=== PATIENT | male | born 1980 | race Caucasian/White ===

== ENCOUNTER 2021-09-29 18:48 | Emergency (ER) | payer OTHER, SELFPAY ==
--- NOTE | 2021-09-29 18:58 | ED.EYEPROB ---
HPI - Eye Problem General Chief complaint: Eye Problems Stated complaint: lt eye irritation Time Seen by Provider: 09/29/21 18:58 Source: patient Mode of arrival: ambulatory Limitations: no limitations History of Present Illness HPI Narrative: 41-year-old male presents with irritation, clear drainage, redness to left eye since about noon today. 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 Unsure what may have flown into his eye. States that he did reach up and start rubbing his eye. 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 Patient reports that he is supposed to wear glasses but normally does not use them. All systems reviewed and negative except as noted above. Related Data Allergies Allergy/AdvReac Type Severity Reaction Status Date / Time No Known Allergies Allergy Mild Verified 09/29/21 19:05 Review of Systems Review of Systems: CONSTITUTIONAL: Denies fever, chills, or sweats. EYES: Denies visual changes. Reports redness, discharge, irritation to left eye.. ENT: Denies rhinorrhea, congestion, sore throat, or otalgia. CARDIOVASCULAR: Denies chest pain, palpitations, or edema. RESPIRATORY: Denies cough or dyspnea. GASTROINTESTINAL: Denies abdominal pain, nausea, vomiting, or diarrhea. GENITOURINARY: Denies dysuria or hematuria. SKIN: Denies rash or itching. MUSCULOSKELETAL: Denies back pain, joint pain, or myalgia. NEUROLOGIC: Denies headache, numbness, or weakness. PSYCHIATRIC: Denies anxiety or depression. All other systems reviewed are negative, except as documented in HPI. PMFSH Comments At time of signature, agree with nursing past medical, surgical, social and family history. There is no relevant family history pertinent to the presenting complaint. Exam Narrative: GENERAL: This is a well-nourished, well-developed patient, in no apparent distress. HEAD: normocephalic, atraumatic. EYES: PERRL. Sclera clear/white. Vision is grossly intact. With fluorescein, a small corneal abrasion noted to left eye under Hilliard lamp. There is no exudate or significant drainage. EARS: External ears normal NOSE: External nose normal NECK: Neck supple, non-tender without lymphadenopathy, masses or thyromegaly. CARDIOVASCULAR: Regular rate and rhythm without murmurs, gallops, or rubs. RESPIRATORY: Clear to auscultation. Breath sounds equal bilaterally. No wheezes, rales, or rhonchi. SKIN: warm, Dry, intact with no suspicious lesions or rash, good texture and turgor. NEURO: awake, alert, and oriented to person, place and time. There were no obvious focal neurologic abnormalities. EXTREMITIES: Normal range of motion to extremities. Course Course Level of Care: Express Care Visit Vital Signs Vital signs: Vital Signs Temperature 36.7 C 09/29/21 19:00 Pulse Rate 77 09/29/21 19:00 Respiratory Rate 18 09/29/21 19:00 Blood Pressure 152/85 H 09/29/21 19:00 Pulse Oximetry 98 09/29/21 19:00 Temperature 36.7 C 09/29/21 19:00 Pulse Rate 77 09/29/21 19:00 Respiratory Rate 18 09/29/21 19:00 Blood Pressure 152/85 H 09/29/21 19:00 Pulse Oximetry 98 09/29/21 19:00 Reviewed MDM - Eye Problem MDM Narrative Medical decision making narrative: Patient is aware of diagnosis, understands and agrees to treatment plan. Anticipatory guidance given. Patient agrees to follow-up as directed and is aware of reasons to seek care at the emergency department. Portions of this record may have been created with voice recognition software Differential Diagnosis Differential diagnosis: Likely corneal abrasion, conjunctivitis and corneal ulcer Discharge Plan Discharge Clinical Impression: Abrasion of left cornea Qualifiers: Encounter type: initial encounter Qualified Code(s): S05.02XA - Injury of conjunctiva and corneal abrasion without foreign body, left eye, initial encounter Patient Disposition: Home, Self-Care Condition: Stable Instruction
[2021-09-29 19:00] VITALS: BP 152/85; PULSE 77; RESP 18; TEMP 36.7; O2SAT 98
== END 2021-09-29 19:24 | disposition home or self-care (01) ==
PROVIDERS: Emergency Provider Nurse Practitioner Family; PCP Internal Medicine
DX: S05.02XA Injury of conjunctiva and corneal abrasion without foreign body, left eye, initial encounter (principal); X58.XXXA Exposure to other specified factors, initial encounter
CPT/HCPCS: 99213; A9270; G0463

== ENCOUNTER 2025-06-04 13:58 | Outpatient (CLI) | payer OTHER, SELFPAY ==
--- NOTE | ~2025-06-04 | US_ITS ---
EXAMINATION: US abdomen complete, 06/04/2025 14:00 SOFTWARE QUALITY ASSURANCE ENGINEER HISTORY: R10.9 - Unspecified abdominal pain COMPARISON: None Technique: Macias-scale and color Doppler images were obtained. Findings: LIVER: Lliver contours intact, no lesions. Normal echogenicity. . GALLBLADDER/BILIARY: Unremarkable.No cholelithiais, wall thickening or pericholecystic fluid. No biliary dilatation. CBD 2 mm. Blaine sign negative. PANCREAS: Pancreas limited by bowel gas. SPLEEN: Unremarkable, no splenomegaly. KIDNEYS: Right Kidney: Right kidney, 5.6 x 5.3 cm, normal. Left Kidney: Left kidney 12.8 x 6.2 x 5.3 cm, normal. AORTA: Normal caliber aorta. IVC: Unremarkable. FREE FLUID: None. Impression: No acute abnormality. Reviewed, dictated and finalized at location P. WARE QUALITY ASSURANCE ENGINEER Impression: No acute abnormality.
--- OUTSIDE RECORDS SUMMARY | 2025-06-04 16:47 | XMS_ITS | Clinical Summary ---
Author Organization [facility] Address [address] [place] [address] Care Team Providers Care Application Architect Name Role Phone Smitha Hickman Primary Care Provider [phone] Allergies No known active allergies Medications testosterone cypionate (DEPO TESTOSTERONE) 200 MG/ML injection 07/25/2024 Act trisha Active Problems No known active problems Immunizations Immunization Administration Dates Next Due Dtap (Generic) 03/05/1984, 3,04/02/1982,1981,1981 MMR (Generic) 02/21/1990,10/03/1985 MODERNA COVID-19 (12+) MRNA, LNP-S, PF, 100 MCG/ 0.5 ML DOSE 08/02/2021,07/05/2021 Mumps (Generic) 03/16/1987 Opv 03/05/1984, 2,1981,1981 Social History Tobacco Use Types Packs/Day Years Used Date Smoking Tobacco: Every Day Cigarettes Smokeless Tobacco: Current Tobacco Cessation:Ready to Q uit: Not Asked; Counseling Given: Yes Alcohol Use Standard Drinks/Week Comments Yes 0 (1 standard drink = 0.6 oz pur e alcohol) Sex and Gender Information Value Date Recorded Sex Assigned at Male 08/20/2024 9:25 AM GLOBAL MARKETING COORDINATOR Legal Sex Male 5:54 PM CDT Gender Identity Male 08/20/2024 9:25 AM GLOBAL MARKETING COORDINATOR Sexual Orientation Not on file Last Filed Vital Signs Vital Sign Reading Time Taken Comments Blood Pressure 150/80 08/21/2024 1:10 AM GLOBAL MARKETING COORDINATOR Pulse 82 08/21/2024 1:10 AM GLOBAL MARKETING COORDINATOR Temperature 36.3 C (97.3 F) 08/21/2024 1:10 AM GLOBAL MARKETING COORDINATOR Respiratory Rate 18 08/21/2024 1:10 AM GLOBAL MARKETING COORDINATOR Oxygen Saturation 98% 08/21/2024 1:10 AM GLOBAL MARKETING COORDINATOR Inhaled Oxygen Concentration - - Weight 83.9 kg (185 lb) 08/21/2024 1:10 AM GLOBAL MARKETING COORDINATOR Height 172.7 cm (5' 8) 08/21/2024 1:10 AM GLOBAL MARKETING COORDINATOR Body Mass Index 28.13 08/21/2024 1:10 AM GLOBAL MARKETING COORDINATOR Plan of Treatment Health Maintenance Due Date Last Done Comments Annual Physical 1984 DTaP, Tdap and Td Vaccines (5 - Tdap) 1992 03/05/1984, 03/04/1983, 04/02/1982, Additional history exists Hepatitis C 1999 Hepatitis B Vaccines (1 of 3 - 19+ 3-dose series) 2000 Pneumococcal Vaccine: Pediatrics (0 to 5 Years) and At-Risk Patients (6 to 49 Years) (1 of 2 - PCV) 2000 HPV Vaccines (1 - 3-dose SCDM series) 2008 PHQ-2 (Physician Robertson) 06/25/2024 COVID-19 Vaccine (3 - season) 2025 08/02/2021, 07/05/2021 Influenza Adult (#1) 2025 Hepatitis A Vaccines Aged Out No long er eligible based on patient's age to complete this topic Meningococcal B Vaccine Aged Out No l onger eligible based on patient's age to complete this topic Meningococcal Vaccine Aged Out No eh katelyn eligible based on patient's age to complete this topic RSV Immunizations Under 20 Months Aged Out No longer eligible based on patient's age to complete this topic Insurance [employer] Care Teams Application Architect Relationship Specialty Start Date End Date Smitha Hickman PA PCP - General PHYSICIAN [employer] WORKER 12/20/18
== END 2025-06-04 13:59 | disposition home or self-care (01) ==
PROVIDERS: PCP Nurse Practitioner Family; Visit Provider Nurse Practitioner Family
DX: R79.89 Other specified abnormal findings of blood chemistry (principal); R74.8 Abnormal levels of other serum enzymes; R10.9 Unspecified abdominal pain
CPT/HCPCS: 76700

== ENCOUNTER 2025-06-04 15:47 | Emergency (ER) | payer OTHER, SELFPAY ==
[2025-06-04 15:50] VITALS: BP 151/84; PULSE 103; RESP 18; TEMP 36.9; O2SAT 98
--- OUTSIDE RECORDS SUMMARY | 2025-06-04 17:42 | XMS_ITS | Encounter Summary ---
Author Organization [facility] Address [facility] [place] [address] Care Team Providers Care Microbiology Manager Name Role Phone Smitha Hickman Primary Care Provider [phone] Reason for Referral * Imaging (Emergency) - New Request Specialty Diagnoses / Procedures Referred By Marta hidalgo Referred To Contact RADIOLOGY Procedures CT ABD+PEL W IV CON ONLY Christie Oglesby MD [address] [address] Phone: tel: fax: Referral ID Status Reason Start Date Expiration Date V isits Requested Visits Authorized [id number] New Request 06/04/2025 06/04/[address] Reason for Visit * Reason Comments Abdominal Pain Encounter Details Date Type Department Care Team (Late st Contact Info) Description 06/04/2025 5:[address] HAND - Present Emergency [facility] Emergency Room [address] [place] [id number] Christie Oglesby MD [address] [id number] Abdominal Pain Social History Tobacco Use Types Packs/Day Years Used Date Smoking Tobacco: Every Day Cigarettes Smokeless Tobacco: Current Tobacco Cessation:Ready to Q uit: Not Asked; Counseling Given: Not Answered Alcohol Use Standard Drinks/Week Comments Yes 40 (1 standard drink = 0.6 oz pu re alcohol) Sex and Gender Information Value Date Recorded Sex Assigned at Male 08/20/2024 9:25 [address] HAND Legal Sex Male 5:54 PM CDT Gender Identity Male 08/20/2024 9:[address] HAND Sexual Orientation Not on file documented as of this encounter Last Filed Vital Signs Vital Sign Reading Time Taken Comments Blood Pressure 149/83 06/04/2025 5:52 [address] HAND Pulse 91 06/04/2025 5:52 PM [address] HAND Temperature 37.5 C (99.5 F) 06/04/2025 5:52 PM RA[address] HAND Respiratory Rate 16 06/04/2025 5:52 [address] HAND Oxygen Saturation 96% 06/04/2025 5:52 PM RA[address] HAND Inhaled Oxygen Concentration - - Weight 83.9 kg (185 lb) 06/04/2025 5:52 [address] HAND Height 172.7 cm (5' 8) 06/04/2025 5:52 PM RA[address] HAND Body Mass Index 28.13 06/04/2025 5:52 [address] HAND documented in this encounter Functional Status * Calculated C-SSRS Risk Score (Lifetime/Recent) Answer Date of Assessment Author Status No Risk Indicated 06/04/2025 5:54 [address] HAND Linda Reyes RN Active * [place] Suicide Severity Rating Scale (Screener/Recent Self-Report) Question Answer Date of Assessment Author Status 1. Wish to be (Past 1 Month) No 06/04/2025 5:54 PM RA[address] HAND Dee Dee Reyes RN Acti ve 2. Non-Specific Active Suicidal Thoughts (Past 1 Month) No 06/04/2025 5:54 PM RA[address] HAND Dee Dee Reyes RN Acti ve 6. Suicidal Behavior (Lifetime) No 06/04/2025 5:54 [address] RA[address] HAND Dee Dee Reyes RN Acti ve documented as of this encounter ED Notes * Dee Dee Reyes RN - 06/04/2025 5:49 PM CSTSummary: abd pain Pt states has been sick since Sunday. Unable to eat or drink. Has been going to work. Abed pain, epigastric area started 4 days ago . Went to office yesterday and had lac and us done at [place]. Did not work today. Friends noticed pt very yellow. Nausea, no vomiting. Pain 5/10. ROAD HAND * Christie Oglesby MD - 06/04/2025 5:16 PM CST Chief Complaint No chief complaint on file. History of Present Illness This is a patient who is 44 years old coming with a chief complaint of abdominal discomfort. Statesis been having it for days. States that it started on Sunday went to work on Sunday and Sunday but the pain is just getting worse. Noting he is also having an unusual color. Notes the urine is quite dark. States that he drinks heavily. Drinks at least 2412 ounce beers and numerous shots in a week. If hehas a heavy drinking day it would be 12 beers at night. States he went into see his doctor was toldhe had abnormal labs. He had a ultrasound done but could not identify the pancreas. He has been sent in for CT and worsening abdominal pain Medical History ALLERGIES: No Known Allergies MEDICATIONS: Prior to Admission medications Medication Sig Start Date End Date Taking? Authorizing Provider testosterone cypionate (DEPO TESTOSTERONE) 200 MG/ML injection 07/25/24 Default History Genericprovider PAST MEDICAL HISTORY: Past Medical History[1] PAST SURGICAL HISTORY: Past Surgical History[2] FAMILY HISTORY: Family History[3] SOCIAL HISTORY: Social History[4] Review of Systems Review of Systems Physical Exam There were no vitals filed for this visit. Physical Exam HENT: Head: Normocephalic. Mouth/Throat: Mouth: Mucous membranes are moist. Cardiovascular: Rate and Rhythm: Normal rate. Pulmonary: Effort: Pulmonary effort is normal. Breath sounds: Normal breath sounds. Abdominal: Tenderness: There is generalized abdominal tenderness. Negative signs include Hope's sign. Comments: hepatomegaly Skin: Coloration: Skin is jaundiced. Neurological: General: No focal deficit present. Mental Status: He is alert. Diagnostic Studies / Procedures ELECTROCARDIOGRAMS: No results found for this visit on 06/04/25. LABORATORY STUDIES: No results found for this visit on 06/04/25. IMAGING STUDIES No orders to display ED Course / Medical Decision Making Medical Decision Making Patient is a male coming in with a chief complaint of abdominal pain. Patient arrives he has yellow skin and a tender abdominal exam. Patient initial CBC is unremarkable Patient's CMP is normal with a sodium of 132 chloride 96 bilirubin total is 12.1 direct bilirubin is pending. AST elevated at 149 ALT is 379 alk phos 414 lipase is 112. Urinalysis shows nitrates protein glucose bilirubin and trace blood. I ordered IV fluids for the patient as well as ceftriaxone. Patient's ongoing evaluation and treatment are signed out to the oncoming attending. Amount and/or Complexity of Data Reviewed Labs: ordered. Radiology: ordered. Risk Prescription drug management. Clinical Impression None Disposition: Data Unavailable [1] No past medical history on file. [2] No past surgical history on file. [3] No family history on file. [4] Social History Tobacco Use ??? Smoking status: Every Day Types: Cigarettes ??? Smokeless tobacco: Current Substance Use Topics ??? Alcohol use: Yes ??? Drug use: No Christie Oglesby MD 06/04/[address] HAND documented in this encounter Plan of Treatment Pending Results Name Type Priority Associated Diagnoses Date /Time LACTIC ACID Lab STAT 06/04/2025 6: [address] ABD+PEL W IV CON ONLY CT STAT 06/04/2025 6:54 PM RA[address]RO[address] HAND CK (CPK) Lab STAT 06/04/2025 6:1 0 PM RAILRO[address] HAND PROTIME/INR, VENOUS Lab STAT 06/04 6:10 PM RA[address] HAND ETHANOL Lab STAT 06/04/2025 6:1 0 [address] RA[address] HAND Scheduled Orders Name Type Priority Associated Diagnoses Orde r Schedule LACTIC ACID Lab STAT STAT for 1 Oc currences starting 06/04/2025 until 06/04/2025 CT ABD+PEL W IV CON ONLY CT STAT One time imaging One time imaging for 1 Occurrences starting 06/04/2025 until 06/04/2025 CK (CPK) Lab Routine STAT for 1 Occ urrences starting 06/04/2025 until 06/04/2025 PROTIME/INR, VENOUS Lab Routine STAT for 1 Occurrences starting 06/04/2025 until 06/04/2025 ETHANOL Lab STAT Today for 1 Oc currences starting 06/04/2025 until 06/04/2025 documented as of this encounter Procedures * The patient is currently admitted. The information in this section might not be complete until the patient is discharged. Procedure Name Priority Date/Time Associated Diagnosis Comments URINALYSIS MICRO ONLY STAT 06/04/2025 6:00 [address] HAND URINALYSIS STAT 06/04/2025 6:00 [address] RA[address] HAND LIPASE STAT 06/04/2025 6:00 [address] HAND DIRECT BILIRUBIN STAT 06/04/2025 6:00 [address] HAND COMPREHENSIVE METABOLIC PANEL STAT 06/04/2025 6:00 [address] HAND CBC W/DIFF STAT 06/04/2025 6:00 [address] HAND documented in this encounter Results * URINALYSIS MICRO ONLY (06/04/2025 6:00 PM RA[address]RO[address] HAND) WBC/HPF 0-5 0 - 5 /HPF 06/04/2025 6:27 PM [address] HAND [facility] RBC/HPF 10-25 0 - 5 /HPF 06/04/2025 6:27 PM [address] HAND [facility] EPI/HPF RARE /HPF 06/04/2025 6:27 PM [address] HAND [facility] 06/04/2025 6:00 [address] HAND us Christie Oglesby MD URINE ORDERABLES Final Result Performing Organization Address City/[facility]/ZIP Co de Phone Number [facility] [address] [place] [address], [place] [phone] * (ABNORMAL) DIRECT BILIRUBIN (06/04/2025 6:00 PM RA[address] HAND) BILIRUBIN DIRECT S/P/B 9.8(H) 0.0 - 0.20 MG/DL 06/04/2025 6:49 PM [address] HAND [facility] BLOOD VENOUS BLOOD SPECIMEN / Unknown 06/04/2025 6:00 [address] HAND us Christie Oglesby MD LABORATORY Final Result [facility] [address] [facility] [place] [address], [place] [phone] * (ABNORMAL) URINALYSIS (06/04/2025 6:00 PM RA[address] HAND) COLOR (U) BROWN 06/04/2025 6:27 PM [facility] TRANSPARENCY CLOUDY 06/04/2025 6:27 PM [facility] SPECIFIC GRAVITY (U) >1.030(H) 1.000 - 1.030 06/04/2025 6:27 PM [facility] U PH 5.5 5.0 - 9.0 06/04/2025 6:27 PM [facility] LEUKOCYTES (U) NEGATIVE NEGATIVE 06/04/2025 6:27 PM [facility] NITRITES POSITIVE(A) NEGATIVE 06/04/2025 6:27 PM [facility] PROTEIN RANDOM (U) 2+(A) NEGATIVE 06/04/2025 6:27 PM [facility] GLUCOSE (U) TRACE(A) NEGATIVE 06/04/2025 6:27 PM [facility] KETONES MG/DL (U) 3+(A) NEGATIVE 06/04/2025 6:27 PM [facility] BILIRUBIN (U) 3+(A) NEGATIVE 06/04/2025 6:27 PM [facility] BLOOD (U) TRACE(A) NEGATIVE 06/04/2025 6:27 PM [facility] URINE URINE SPECIMEN OBTAINED BY CLEAN CATCH PROCEDURE / Unknown 06/04/2025 6:00 [address] HAND Christie Oglesby MD URINE ORDERABLES Final Result [facility] [address] [place] [address], [place] [phone] * (ABNORMAL) LIPASE (06/04/2025 6:00 PM RAILRO[address] HAND) Pathologist [facility] LIPASE 112(H) 16 - 77 UNITS/L 06/04/2025 6:32 PM [address] HAND [facility] BLOOD VENOUS BLOOD SPECIMEN / Unknown 06/04/2025 6:00 PM RA[address] HAND us Christie Oglesby MD LABORATORY Final Result [facility] [address] [place] [address], [place] [phone] * (ABNORMAL) COMPREHENSIVE METABOLIC PANEL (06/04/2025 6:00 PM RAILRO[address] HAND) [facility] GLUCOSE 92 70 - 99 MG/DL 06/04/2025 6:32 PM [facility] BUN 15 7 - 18 MG/DL 06/04/2025 6:32 PM [facility] CREATININE S/P/B 0.88 0.7 - 1.3 MG/DL 06/04/2025 6:32 PM [facility] SODIUM S/P/B 132(L) 136 - 145 MMOL/L 06/04/2025 6:32 PM [facility] POTASSIUM S/P/B 4.1 3.5 - 5.1 MMOL/L 06/04/2025 6:32 PM [facility] CHLORIDE S/P/B 96(L) 100 - 108 MMOL/L 06/04/2025 6:32 PM [facility] CO2 24.2 21 - 32 MMOL/L 06/04/2025 6:32 PM [facility] CALCIUM S/P/B 8.9 8.5 - 10.1 MG/DL 06/04/2025 6:32 PM [facility] BILIRUBIN TOTAL S/P/B 12.1(H) 0.2 - 1.2 MG/DL 06/04/2025 6:32 PM [facility] TOTAL PROTEIN S/P/B 7.9 6.4 - 8.2 G/DL 06/04/2025 6:32 PM [facility] ALBUMIN S/P/B 3.4 3.4 - 5.0 G/DL 06/04/2025 6:32 PM [facility] AST 149(H) 15 - 37 U/L 06/04/2025 6:32 PM [facility] ALT 379(H) 16 - 60 U/L 06/04/2025 6:32 PM [facility] ALKALINE PHOSPHATASE S/P/B 414(H) 50 - 136 U/L 06/04/2025 6:32 PM [facility] ANION GAP 11.8 5 - 15 MMOL/L 06/04/2025 6:32 PM [facility] BUN CREATININE RATIO 17.0 6 - 26 06/04/2025 6:32 PM [facility] A/G RATIO 0.8(L) 1.0 - 2.0 RATIO 06/04/2025 6:32 PM [facility] GFR ESTIMATE >90 >90 ML/MIN/1.7 3 M2 06/04/2025 6:32 PM [facility] Comment: NOTE: eGFR is not calculated for patients <18 years of age. This is an estimated GFR calculation using the new CKD EPI creatinine equation without race and so does not require a correction factor for race. This estimated GFR should not be used for calculating drug doses. BLOOD VENOUS BLOOD SPECIMEN / Unknown 06/04/2025 6:00 PM [facility] Christie Oglesby MD LABORATORY Final Result [facility] [address] [place] [address], * (ABNORMAL) CBC W/DIFF (06/04/2025 6:00 PM RAILRO[address] HAND) WBC 9.83 4.4 - 11.0 x10'3/uL 06/04/2025 6:13 PM RA[address] HAND [facility] RBC 5.27 4.50 - 5.90 x10'6/uL 06/04/2025 6:13 PM [facility] HGB 15.6 14.0 - 17.5 G/DL 06/04/2025 6:13 PM [facility] HCT 45.2 41.5 - 50.4 % 06/04/2025 6:13 PM [facility] MCV 85.8 80.0 - 96.0 FL 06/04/2025 6:13 PM [facility] MCH 29.6 26.5 - 31.4 PG 06/04/2025 6:13 PM [facility] MCHC 34.5 31.9 - 34.8 G/DL 06/04/2025 6:13 PM [facility] RDW 13.9 12.3 - 14.3 % 06/04/2025 6:13 PM [facility] PLT 347 151 - 353 x10'3/uL 06/04/2025 6:13 PM [facility] MPV 10.0 9.7 - 11.9 FL 06/04/2025 6:13 PM [facility] RBC MORPHOLOGY NORMAL 06/04/2025 6:13 PM [facility] PLT MORPH. NORMAL 06/04/2025 6:13 PM [facility] WBC MORPHOLOGY NORMAL 06/04/2025 6:13 PM [facility] LYMPHOCYTES % 9.0(L) 15.8 - 45.0 % 06/04/2025 6:13 PM [facility] NEUTROPHILS % 75.8(H) 42.1 - 71.9 % 06/04/2025 6:13 PM [facility] MONOCYTES % 13.6(H) 5.7 - 12.5 % 06/04/2025 6:13 PM [facility] EOSINOPHILS 0.9 0.0 - 5.6 % 06/04/2025 6:13 PM [facility] BASOPHILS 0.3 0.0 - 1.3 % 06/04/2025 6:13 PM [facility] ABS. NEUTROPHILS 7.45(H) 1.40 - 6.00 x10'3/uL 06/04/2025 6:13 PM [facility] IMMATURE GRANS % 0.4 0.0 - 0.5 % 06/04/2025 6:13 PM [facility] ABS. LYMPHOCYTES 0.88 0.80 - 4.70 x10'3/uL 06/04/2025 6:13 PM [facility] BLOOD VENOUS BLOOD SPECIMEN / Unknown 06/04/2025 6:00 [address] HAND us Christie Oglesby MD LABORATORY Final Result [facility] [address] [place] [address], documented in this encounter Visit Diagnoses Not on filedocumented in this encounter Administered Medications Active Administered Medications - up to 3 most recent administrations Medication Order MAR Action Action Date Dose Rate Site cefTRIAXone (cefTRIAXone Sodium) 1 g in sterile water 10 mL IV 1 g, Intravenous, at 120 mL/hr, Once, 1 dose, On Xochitl 06/04/25 at 1900, Reconstitute each vial with 9.6 mL of diluent for a concentration of 100 mg/mL. Administer over at least 5 minutes. LORazepam (ATIVAN) injection 1-3 mg 1-3 mg, Intravenous, Every 1 hour PRN, Other, per CIWA algorithm, Starting on [facility] 06/04/25 at 1816, Until Discontinued, - (For CIWA score 8-11 --- Lorazepam 1 mg) - (For CIWA score 12-15 Lorazepam 2 mg) - (For CIWA score 16-20 Lorazepam 3 mg) - (For CIWA score greater than 20 - Lorazepam 3 mg) Use oral lorazepam as first choice. Adjust dose following CIWA assessment algorithms. Hold lorazepam for excessive sedation (RR less than 8 or RASS -3 to -5). - If CIWAscore is greater than 15 for 2 consecutive checks, or greater than 20 on any check, discuss with providers about escalation of level of care. For IV use, further dilute with an equal volume of saline. Do not exceed a rate of 2 mg/min. LORazepam (ATIVAN) tablet 1-3 mg 1-3 mg, Oral, Every 1 hour PRN, Other, per CIWA algorithm, Starting on [facility] 06/04/25 at 1816, Until Discontinued, - (For CIWA score 8-11 --- Lorazepam 1 mg) - (For CIWA score 12-15 Lorazepam 2 mg) - (For CIWA score 16-20 Lorazepam 3 mg) - (For CIWA score greater than 20 - Lorazepam 3 mg) Use oral lorazepam as first choice. Adjust dose following CIWA assessment algorithms. Hold lorazepam for excessive sedation (RR less than 8 or RASS -3 to -5). - If CIWAscore is greater than 15 for 2 consecutive checks, or greater than 20 on any check, discuss with providers about escalation of level of care. normal saline 0.9 % flush 5-10 mL 5-10 mL, Intravenous, 2 times daily, First dose on Sun06/05/25 at 0615, Until Discontinued normal saline 0.9 % flush 5-10 mL 5-10 mL, Intracatheter, As needed, Line care, Starting on Xochitl 06/04/25 at 1802, Until Discontinued sodium chloride 0.9% bolus infusion 1,000 mL 1,000 mL, Intravenous, Administer over 60 Minutes, Once, 1 dose, On Xochitl 06/04/25 at 1900 sodium chloride 0.9% infusion at 2-10 mL/hr, Intravenous, PRN, Infuse as needed KVO, Starting on Xochitl 06/04/25 at 1802, Until Discontinued Inactive Administered Medications - up to 3 most recent administrations Medication Order MAR Action Action Date Dose Rate Site iopamidol (ISOVUE-370) 76 % injection 75 mL 75 mL, Intravenous, IMG once as needed, Contrast, 1 dose, Starting on Xochitl 06/04/25 at 1855, Until Xochitl 06/04/25 at 1850 Given 06/04/2025 6:50 PM RA[address] HAND 75 mLs documented in this encounter Active and Recently Administered Medications Times are shown in RAILROAD HAND. Scheduled Medication Order 06/02/2025 06/03/2025 06/04/2025 cefTRIAXone (cefTRIAXone Sodium) 1 g in sterile water 10 mL IV 1 g, Intravenous, at 120 mL/hr, Once, 1 dose, On Xochitl 06/04/25 at 1900, Reconstitute each vial with 9.6 mL of diluent for a concentration of 100 mg/mL. Administer over at least 5 minutes. 1900 (Due) normal saline 0.9 % flush 5-10 mL(Linked Group 1) 5-10 mL, Intravenous, 2 times daily, First dose on Sun06/05/25 at 0615, Until Discontinued sodium chloride 0.9% bolus infusion 1,000 mL 1,000 mL, Intravenous, Administer over 60 Minutes, Once, 1 dose, On Xochitl 06/04/25 at 1900 1900 (Due) PRN Medication Order 06/02/2025 06/03/2025 06/04/2025 iopamidol (ISOVUE-370) 76 % injection 75 mL (COMPLETED) 75 mL, Intravenous, IMG once as needed, Contrast, 1 dose, Starting on Xochitl 06/04/25 at 1855, Until Xochitl 06/04/25 at 1850 1850 (Given - Provid er: Lauren Lopez, RTR) LORazepam (ATIVAN) injection 1-3 mg(Linked Group 2) 1-3 mg, Intravenous, Every 1 hour PRN, Other, per CIWA algorithm, Starting on Xochitl 06/04/25 at 1816, Until Discontinued, - (For CIWA score 8-11 --- Lorazepam 1 mg) - (For CIWA score 12-15 Lorazepam 2 mg) - (For CIWA score 16-20 Lorazepam 3 mg) - (For CIWA score greater than 20 - Lorazepam 3 mg) Use oral lorazepam as first choice. Adjust dose following CIWA assessment algorithms. Hold lorazepam for excessive sedation (RR less than 8 or RASS -3 to -5). - If CIWAscore is greater than 15 for 2 consecutive checks, or greater than 20 on any check, discuss with providers about escalation of level of care. For IV use, further dilute with an equal volume of saline. Do not exceed a rate of 2 mg/min. LORazepam (ATIVAN) tablet 1-3 mg(Linked Group 2) 1-3 mg, Oral, Every 1 hour PRN, Other, per CIWA algorithm, Starting on Xochitl 06/04/25 at 1816, Until Discontinued, - (For CIWA score 8-11 --- Lorazepam 1 mg) - (For CIWA score 12-15 Lorazepam 2 mg) - (For CIWA score 16-20 Lorazepam 3 mg) - (For CIWA score greater than 20 - Lorazepam 3 mg) Use oral lorazepam as first choice. Adjust dose following CIWA assessment algorithms. Hold lorazepam for excessive sedation (RR less than 8 or RASS -3 to -5). - If CIWAscore is greater than 15 for 2 consecutive checks, or greater than 20 on any check, discuss with providers about escalation of level of care. normal saline 0.9 % flush 5-10 mL(Linked Group 1) 5-10 mL, Intracatheter, As needed, Line care, Starting on Xochitl 06/04/25 at 1802, Until Discontinued sodium chloride 0.9% infusion(Linked Group 1) at 2-10 mL/hr, Intravenous, PRN, Infuse as needed KVO, Starting on Xochitl 06/04/25 at 1802, Until Discontinued Linked Groups Order Group 1: Maintain Peripheral IV Routine, Until discontinued, Starting on Xochitl 06/04/25 at 1803, Until Specified And normal saline 0.9 % flush 5-10 mLJump to med 5-10 mL, Intravenous, 2 times daily, First dose on Sun06/05/25 at 0615, Until Discontinued And normal saline 0.9 % flush 5-10 mLJump to med 5-10 mL, Intracatheter, As needed, Line care, Starting on Xochitl 06/04/25 at 1802, Until Discontinued And sodium chloride 0.9% infusionJump to med at 2-10 mL/hr, Intravenous, PRN, Infuse as needed KVO, Starting on Xochitl 06/04/25 at 1802, Until Discontinued Group 2: LORazepam (ATIVAN) tablet 1-3 mgJump to med 1-3 mg, Oral, Every 1 hour PRN, Other, per CIWA algorithm, Starting on Xochitl 06/04/25 at 1816, Until Discontinued, - (For CIWA score 8-11 --- Lorazepam 1 mg) - (For CIWA score 12-15 Lorazepam 2 mg) - (For CIWA score 16-20 Lorazepam 3 mg) - (For CIWA score greater than 20 - Lorazepam 3 mg) Use oral lorazepam as first choice. Adjust dose following CIWA assessment algorithms. Hold lorazepam for excessive sedation (RR less than 8 or RASS -3 to -5). - If CIWAscore is greater than 15 for 2 consecutive checks, or greater than 20 on any check, discuss with providers about escalation of level of care. Or LORazepam (ATIVAN) injection 1-3 mgJump to med 1-3 mg, Intravenous, Every 1 hour PRN, Other, per CIWA algorithm, Starting on Xochitl 06/04/25 at 1816, Until Discontinued, - (For CIWA score 8-11 --- Lorazepam 1 mg) - (For CIWA score 12-15 Lorazepam 2 mg) - (For CIWA score 16-20 Lorazepam 3 mg) - (For CIWA score greater than 20 - Lorazepam 3 mg) Use oral lorazepam as first choice. Adjust dose following CIWA assessment algorithms. Hold lorazepam for excessive sedation (RR less than 8 or RASS -3 to -5). - If CIWAscore is greater than 15 for 2 consecutive checks, or greater than 20 on any check, discuss with providers about escalation of level of care. For IV use, further dilute with an equal volume of saline. Do not exceed a rate of 2 mg/min. documented in this encounter Care Teams Microbiology Manager Relationship Specialty Start Date End Date Smitha Hickman PA PCP - General PHYSICIAN FLIGHT DIRECTOR 12/20/18 documented as of this encounter
--- NOTE | 2025-06-04 18:06 | PC.NURSE ---
Patient did not answer page for room X3
--- OUTSIDE RECORDS SUMMARY | 2025-06-04 18:56 | XMS_ITS | Clinical Summary ---
Author Organization [facility] Address [facility] [place] [address] Care Team Providers Care Worm Raiser Name Role Phone Smitha Hickman Primary Care Provider Allergies No known active allergies Medications testosterone cypionate (DEPO TESTOSTERONE) 200 MG/ML injection 07/25/2024 Act trisha Active Problems No known active problems Encounters Date Type Department Care Team Description 06/04/2025 5:42 PM ASSISTANT BUSINESS MANAGER - Present Emergency [facility] Emergency Room [address] [place] [id number] Christie Oglesby MD Abdominal Pain 06/04/2025 Travel from Last 3 Months Immunizations Immunization Administration Dates Next Due Dtap [...] Sex Assigned at Male 08/20/2024 9:25 AM ASSISTANT BUSINESS MANAGER Legal Sex Male 5:54 PM CDT Gender Identity Male 08/20/2024 9:25 AM ASSISTANT BUSINESS MANAGER Sexual Orientation Not on file Last Filed Vital Signs Vital Sign Reading Time Taken Comments Blood Pressure 149/83 06/04/2025 5:52 PM ASSISTANT BUSINESS MANAGER Pulse 91 06/04/2025 5:52 PM ASSISTANT BUSINESS MANAGER Temperature 37.5 C (99.5 F) 06/04/2025 5:52 PM ASSISTANT BUSINESS MANAGER Respiratory Rate 16 06/04/2025 5:52 PM ASSISTANT BUSINESS MANAGER Oxygen Saturation 96% 06/04/2025 5:52 PM ASSISTANT BUSINESS MANAGER Inhaled Oxygen Concentration - - Weight 83.9 kg (185 lb) 06/04/2025 5:52 PM ASSISTANT BUSINESS MANAGER Height 172.7 cm (5' 8) 06/04/2025 5:52 PM ASSISTANT BUSINESS MANAGER Body Mass Index 28.13 06/04/2025 5:52 PM ASSISTANT BUSINESS MANAGER Plan of Treatment Health Maintenance Due Date [...] - 3-dose SCDM series) 2008 PHQ-2 (Physician [place]) 06/25/2024 COVID-19 Vaccine (3 - season) 2025 [...] on patient's age to complete this topic Procedures * The patient is currently admitted. The information in this section might not be complete until the patient is discharged. Procedure Name Priority Date/Time Associated Diagnosis Comments URINALYSIS MICRO ONLY STAT 06/04/2025 6:00 PM ASSISTANT BUSINESS MANAGER DIRECT BILIRUBIN STAT 06/04/2025 6:00 PM ASSISTANT BUSINESS MANAGER URINALYSIS STAT 06/04/2025 6:00 PM ASSISTANT BUSINESS MANAGER LIPASE STAT 06/04/2025 6:00 PM ASSISTANT BUSINESS MANAGER COMPREHENSIVE METABOLIC PANEL STAT 06/04/2025 6:00 PM ASSISTANT BUSINESS MANAGER CBC W/DIFF STAT 06/04/2025 6:00 PM ASSISTANT BUSINESS MANAGER from Last 3 Months Results * URINALYSIS MICRO ONLY (06/04/2025 6:00 PM ASSISTANT BUSINESS MANAGER) WBC/HPF 0-5 0 - 5 /HPF 06/04/2025 6:27 PM ASSISTANT BUSINESS MANAGER [facility] RBC/HPF 10-25 0 - 5 /HPF 06/04/2025 6:27 PM ASSISTANT BUSINESS MANAGER [facility] EPI/HPF RARE /HPF 06/04/2025 6:27 PM ASSISTANT BUSINESS MANAGER [facility] 06/04/2025 6:00 PM ASSISTANT BUSINESS MANAGER us Christie Oglesby MD URINE ORDERABLES Final Result Performing Organization Address City/State/[facility] Co de Phone Number [facility] [address] [place] [address], [place] [phone] * (ABNORMAL) URINALYSIS (06/04/2025 6:00 PM ASSISTANT BUSINESS MANAGER) COLOR (U) BROWN 06/04/2025 6:27 PM ASSISTANT BUSINESS MANAGER [facility] TRANSPARENCY CLOUDY 06/04/2025 6:27 PM ASSISTANT BUSINESS MANAGER [facility] SPECIFIC GRAVITY (U) >1.030(H) 1.000 - 1.030 06/04/2025 6:27 PM ASSISTANT BUSINESS MANAGER [facility] U PH 5.5 5.0 - 9.0 06/04/2025 6:27 PM ASSISTANT BUSINESS MANAGER [facility] LEUKOCYTES (U) NEGATIVE NEGATIVE 06/04/2025 6:27 PM [facility] NITRITES POSITIVE(A) NEGATIVE 06/04/2025 6:27 PM [facility] PROTEIN RANDOM (U) 2+(A) NEGATIVE 06/04/2025 6:27 PM [facility] GLUCOSE (U) TRACE(A) NEGATIVE 06/04/2025 6:27 PM [facility] KETONES MG/DL (U) 3+(A) NEGATIVE 06/04/2025 6:27 PM [facility] BILIRUBIN (U) 3+(A) NEGATIVE 06/04/2025 6:27 PM [facility] BLOOD (U) TRACE(A) NEGATIVE 06/04/2025 6:27 PM [facility] URINE URINE SPECIMEN OBTAINED BY CLEAN CATCH PROCEDURE / Unknown 06/04/2025 6:00 PM ASSISTANT BUSINESS MANAGER us Christie Oglesby MD URINE ORDERABLES Final Result Performing Organization Address [facility] Co de Phone Number [facility] [address] [place] [address], [place] [phone] * (ABNORMAL) LIPASE (06/04/2025 6:00 PM ASSISTANT BUSINESS MANAGER) LIPASE 112(H) 16 - 77 UNITS/L 06/04/2025 6:32 PM ASSISTANT BUSINESS MANAGER [facility] BLOOD VENOUS BLOOD SPECIMEN / Unknown 06/04/2025 6:00 PM ASSISTANT BUSINESS MANAGER us Christie Oglesby MD LABORATORY Final Result Performing Organization Address City/[facility]/ZIP Co de Phone Number [facility] [address] [place] [address], [place] [phone] * (ABNORMAL) DIRECT BILIRUBIN (06/04/2025 6:00 PM ASSISTANT BUSINESS MANAGER) [facility] BILIRUBIN DIRECT S/P/B 9.8(H) 0.0 - 0.20 MG/DL 06/04/2025 6:49 PM ASSISTANT BUSINESS MANAGER [facility] BLOOD VENOUS BLOOD SPECIMEN / Unknown 06/04/2025 6:00 PM ASSISTANT BUSINESS MANAGER Christie Oglesby MD LABORATORY Final Result [facility] [address] [place] [address], [place] [phone] * (ABNORMAL) COMPREHENSIVE METABOLIC PANEL (06/04/2025 6:00 PM ASSISTANT BUSINESS MANAGER) [facility] GLUCOSE 92 70 - 99 MG/DL 06/04/2025 6:32 PM [facility] BUN 15 7 - 18 MG/DL 06/04/2025 6:32 PM [facility] CREATININE S/P/B 0.88 0.7 - 1.3 MG/DL 06/04/2025 6:32 PM [facility] SODIUM S/P/B 132(L) 136 - 145 MMOL/L 06/04/2025 6:32 PM [facility] POTASSIUM S/P/B 4.1 3.5 - 5.1 MMOL/L 06/04/2025 6:32 PM [facility] CHLORIDE S/P/B 96(L) 100 - 108 MMOL/L 06/04/2025 6:32 PM [facility] CO2 24.2 21 - 32 MMOL/L 06/04/2025 6:32 PM [facility] CALCIUM S/P/B 8.9 8.5 - 10.1 MG/DL 06/04/2025 6:32 PM [facility] BILIRUBIN TOTAL S/P/B 12.1(H) 0.2 - 1.2 MG/DL 06/04/2025 6:32 PM [facility] TOTAL PROTEIN S/P/B 7.9 6.4 - 8.2 G/DL 06/04/2025 6:32 PM [facility] ALBUMIN S/P/B 3.4 3.4 - 5.0 G/DL 06/04/2025 6:32 PM [facility] AST 149(H) 15 - 37 U/L 06/04/2025 6:32 PM [facility] ALT 379(H) 16 - 60 U/L 06/04/2025 6:32 PM [facility] ALKALINE PHOSPHATASE S/P/B 414(H) 50 - 136 U/L 06/04/2025 6:32 PM [facility] ANION GAP 11.8 5 - 15 MMOL/L 06/04/2025 6:32 PM [facility] BUN CREATININE RATIO 17.0 6 - 26 06/04/2025 6:32 PM [facility] A/G RATIO 0.8(L) 1.0 - 2.0 RATIO 06/04/2025 6:32 PM [facility] GFR ESTIMATE >90 >90 ML/MIN/1.7 3 M2 06/04/2025 6:32 PM [facility] Comment: NOTE: eGFR is not calculated for patients <18 years of age. This is an estimated GFR calculation using the new CKD EPI creatinine equation without race and so does not require a correction factor for race. This estimated GFR should not be used for calculating drug doses. BLOOD VENOUS BLOOD SPECIMEN / Unknown 06/04/2025 6:00 PM ASSISTANT BUSINESS MANAGER us Christie Oglesby MD LABORATORY Final Result [facility] [address] [place] [address], * (ABNORMAL) CBC W/DIFF (06/04/2025 6:00 PM ASSISTANT BUSINESS MANAGER) WBC 9.83 4.4 - 11.0 x10'3/uL 06/04/2025 6:13 PM ASSISTANT BUSINESS MANAGER [facility] RBC 5.27 4.50 - 5.90 x10'6/uL 06/04/2025 6:13 PM ASSISTANT BUSINESS MANAGER [facility] HGB 15.6 14.0 - 17.5 G/DL 06/04/2025 6:13 PM [facility] HCT 45.2 41.5 - 50.4 % 06/04/2025 6:13 PM [facility] MCV 85.8 80.0 - 96.0 FL 06/04/2025 6:13 PM ASSISTANT BUSINESS MANAGER [facility] MCH 29.6 26.5 - 31.4 PG 06/04/2025 6:13 PM ASSISTANT BUSINESS MANAGER [facility] MCHC 34.5 31.9 - 34.8 G/DL 06/04/2025 6:13 PM ASSISTANT BUSINESS MANAGER [facility] RDW 13.9 12.3 - 14.3 % 06/04/2025 6:13 PM ASSISTANT BUSINESS MANAGER [facility] PLT 347 151 - 353 x10'3/uL 06/04/2025 6:13 PM ASSISTANT BUSINESS MANAGER [facility] MPV 10.0 9.7 - 11.9 FL 06/04/2025 6:13 PM [facility] RBC MORPHOLOGY NORMAL 06/04/2025 6:13 PM ASSISTANT BUSINESS MANAGER [facility] PLT MORPH. NORMAL 06/04/2025 6:13 PM [facility] WBC MORPHOLOGY NORMAL 06/04/2025 6:13 PM ASSISTANT BUSINESS MANAGER [facility] LYMPHOCYTES % 9.0(L) 15.8 - 45.0 % 06/04/2025 6:13 PM [facility] NEUTROPHILS % 75.8(H) 42.1 - 71.9 % 06/04/2025 6:13 PM ASSISTANT BUSINESS MANAGER [facility] MONOCYTES % 13.6(H) 5.7 - 12.5 % 06/04/2025 6:13 PM [facility] EOSINOPHILS 0.9 0.0 - 5.6 % 06/04/2025 6:13 PM [facility] BASOPHILS 0.3 0.0 - 1.3 % 06/04/2025 6:13 PM [facility] ABS. NEUTROPHILS 7.45(H) 1.40 - 6.00 x10'3/uL 06/04/2025 6:13 PM [facility] IMMATURE GRANS % 0.4 0.0 - 0.5 % 06/04/2025 6:13 PM [facility] ABS. LYMPHOCYTES 0.88 0.80 - 4.70 x10'3/uL 06/04/2025 6:13 PM [facility] BLOOD VENOUS BLOOD SPECIMEN / Unknown 06/04/2025 6:00 PM ASSISTANT BUSINESS MANAGER us Christie Oglesby MD LABORATORY Final Result [facility] [address] [place] [address], from Last 3 Months Insurance [employer] Care Teams Worm Raiser Relationship Specialty Start Date End Date Smitha Hickman PA PCP - General PHYSICIAN CARDER BLANKETS 12/20/18
--- OUTSIDE RECORDS SUMMARY | 2025-06-04 18:57 | XMS_ITS | Encounter Summary ---
Author Organization [facility] Address [facility] [place] [address] Care Team Providers Care Product Strategy Director Name Role Phone Smitha Hickman Primary Care Provider [phone] Encounter Details Date Type Department Care Team (Latest Contact Info) Description 06/04/2025 Travel Social History Tobacco Use Types Packs/Day Years Used Date Smoking Tobacco: Every Day Cigarettes Smokeless Tobacco: Current Alcohol Use Standard Drinks/Week Comments Yes 40 (1 standard drink = 0.6 oz pu re alcohol) Sex and Gender Information Value Date Recorded Sex Assigned at Male 08/20/2024 9:25 AM ELECTRIC RANGE PREPARER Legal Sex Male 5:54 PM CDT Gender Identity Male 08/20/2024 9:25 AM ELECTRIC RANGE PREPARER Sexual Orientation Not on file documented as of this encounter Functional Status * Calculated C-SSRS Risk Score (Lifetime/Recent) Answer Date of Assessment Author Status No Risk Indicated 06/04/2025 5:54 PM ELECTRIC RANGE PREPARER Linda Reyes RN Active * Berry Suicide Severity Rating Scale (Screener/Recent Self-Report) Question Answer Date of Assessment Author Status 1. Wish to be (Past 1 Month) No 06/04/2025 5:54 PM ELECTRIC RANGE PREPARER Dee Dee Reyes RN Acti ve 2. Non-Specific Active Suicidal Thoughts (Past 1 Month) No 06/04/2025 5:54 PM ELECTRIC RANGE PREPARER Dee Dee Reyes RN Acti ve 6. Suicidal Behavior (Lifetime) No 06/04/2025 5:54 PM ELECTRIC RANGE PREPARER Dee Dee Reyes RN Acti ve documented as of this encounter Plan of Treatment Not on file documented as of this encounter Visit Diagnoses Not on filedocumented in this encounter Care Teams Product Strategy Director Relationship Specialty Start Date End Date Smitha Hickman PA PCP - General PHYSICIAN PUNCH CARD OPERATOR 12/20/18 documented as of this encounter
== END 2025-06-04 18:06 | disposition left against medical advice (07) ==
LOC: ANHED 22:39
PROVIDERS: PCP Nurse Practitioner Family
DX: R10.9 Unspecified abdominal pain (principal)
CPT/HCPCS: 99199